=== PATIENT | female | born 1965 | race Caucasian/White ===

== ENCOUNTER 2016-12-22 14:33 | Emergency (ER) | payer BC ==
[~2016-12-22] VITALS: Ht 160 cm; Wt 52.3 kg
[2016-12-22 14:34] VITALS: BP 115/78
[2016-12-22] MEDS ORDERED: HYDROcodone/APAP 5/325 TABLET PO PRN (15:00)
[2016-12-22] MEDS ORDERED: KETOROLAC 30 MG/1 ML IM ONE (15:00)
[2016-12-22] MEDS ORDERED: KETOROLAC 30 MG/1 ML ONE (15:03)
[2016-12-22] MEDS ORDERED: HYDROcodone/APAP 5/325 TABLET ONE (15:03)
== END 2016-12-22 15:44 | disposition home or self-care (01) ==
LOC: ED 15:38
DX: G89.29 Other chronic pain (principal); M25.552 Pain in left hip
CPT/HCPCS: 73502; 96372; 99284; J1885

== ENCOUNTER 2016-12-31 13:41 | Emergency (ER) | payer BC, OTHER ==
[~2016-12-31] VITALS: Ht 160 cm; Wt 47.8 kg
[2016-12-31 13:53] VITALS: BP 117/67
[2016-12-31] MEDS ORDERED: IBUPROFEN 200 MG TABLET PO ONE (14:30)
[2016-12-31] MEDS ORDERED: IBUPROFEN 200 MG TABLET ONE (14:34)
== END 2016-12-31 15:26 | disposition home or self-care (01) ==
LOC: ED 15:10
DX: S16.1XXA Strain of muscle, fascia and tendon at neck level, initial encounter (principal); S39.012A Strain of muscle, fascia and tendon of lower back, initial encounter; F43.10 Post-traumatic stress disorder, unspecified; V49.9XXA Car occupant (driver) (passenger) injured in unspecified traffic accident, initial encounter; Y93.89 Activity, other specified; Y92.89 Other specified places as the place of occurrence of the external cause; Y99.8 Other external cause status
CPT/HCPCS: 72020; 72050; 72110; 99284